=== PATIENT | male | born 2000 ===

== ENCOUNTER 2022-06-04 15:23 | Emergency (ER) | payer SELFPAY ==
--- NOTE | 2022-06-04 17:29 | XRay Report ---
RIGHT ANKLE 3 VIEWS INDICATION / CLINICAL INFORMATION: Right ankle pain and swelling. COMPARISON: None available. FINDINGS: BONES and JOINT(S): There is an acute mildly displaced fracture of the distal fibula with a minimally displaced component involving the lateral malleolus. No dislocation. No significant arthritis. SOFT TISSUES: Moderate edema is seen laterally. ADDITIONAL FINDINGS: None. IMPRESSION: 1. Acute right distal fibula/lateral malleolus fracture with associated edema. Signer Name: Ad Lizarraga MD Signed: 06/04/2022 5:25 PM Workstation Name: [id number]
[2022-06-04] MEDS ORDERED: oxyCODONE /ACETAMINOPHEN 5-325MG TAB PO ONE (19:55)
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
[2022-06-04 21:28] VITALS: BP 158/76
== END 2022-06-04 21:28 | disposition home or self-care (01) ==
LOC: ED 15:23
DX: S82.61XA Displaced fracture of lateral malleolus of right fibula, initial encounter for closed fracture (principal); W19.XXXA Unspecified fall, initial encounter; Y93.89 Activity, other specified; Y92.89 Other specified places as the place of occurrence of the external cause; Y99.8 Other external cause status
CPT/HCPCS: 99283